=== PATIENT | female | born 1970 | race Caucasian/White ===

== ENCOUNTER 2024-03-13 20:35 | Emergency (ER) | payer MEDICAID, SELFPAY ==
[2024-03-13 20:38] VITALS: BP 138/92; PULSE 104; RESP 20; TEMP 36.6; O2SAT 94; BMI 24.9
--- NOTE | 2024-03-13 20:55 | CRLHL7_ITS ---
For Patients: As a result of the 21st Century Cures Act, medical imaging exams and procedure reports are released immediately into your electronic medical record. You may view this report before your referring provider. If you have questions, please contact your health care provider. INDICATION: Right lower quadrant abdominal pain, constipation, rectal pain. TECHNIQUE: CT of the abdomen and pelvis acquired with 71 cc Isovue 370 IV contrast. Coronal and sagittal reconstructions. COMPARISON: None. FINDINGS: Diffuse hepatic steatosis. The gallbladder is distended with stones in the gallbladder neck and mild pericholecystic edema. No biliary dilation. The spleen, pancreas, and adrenal glands are negative. Hepatic and portal veins are patent. Symmetric enhancement of the kidneys. Small cyst arising from the right upper pole posteriorly. No hydronephrosis or ureteral dilation. No obstructing urinary calculi identified. No bladder wall thickening. Uterus is unremarkable. No small bowel dilation. Moderate amount of stool throughout the colon. Colonic diverticulosis without evidence of diverticulitis. There is wall thickening of the ascending colon with surrounding pericolonic fat stranding. Findings may represent a nonspecific colitis. There is also perirectal fat stranding/edema without significant rectal wall thickening. Negative appendix. Small amount of free fluid in the pelvis and trace perihepatic ascites. No intraperitoneal free air. Fat containing left inguinal hernia. Aortoiliac vascular calcifications. No lymphadenopathy. Degenerative changes of the lower thoracic spine. Chronic appearing T12 compression fracture. Old right posterior rib fracture. Minimal bibasilar atelectasis. IMPRESSION: 1. Distended gallbladder with stones in the gallbladder neck and mild pericholecystic edema. Recommend further evaluation with right upper quadrant ultrasound to exclude acute cholecystitis. 2. Inflammatory changes of the ascending colon suggesting a nonspecific colitis. 3. Perirectal fat stranding and edema without significant rectal wall thickening. Findings could represent mild proctitis. 4. Diffuse hepatic steatosis and small volume ascites. Please note that all CT scans at this facility use dose modulation, iterative reconstruction, and/or weight-based dosing when appropriate to reduce radiation dose to as low as reasonably achievable. Dictated by Digna Buitrago MD @ 03/13/2024 10:09:30 PM (Electronically Signed)
[2024-03-13 21:17] LABS: Basophils Percent Auto 0.6 % (0.0-3.0); Eosinophils Percent Auto 0.1 % (0.0-7.0); Hematocrit 33.9 % (33.0-51.0); Hemoglobin* 11.4 gm/dL (12.0-16.0); Immature Granulocytes Pct Auto 0.3 %; Lymphocytes Percent Auto 29.1 % (20-44); Mean Corpuscular HGB Conc 34 gm/dL (32-36); Mean Corpuscular Hemoglobin 32 pg (26-34); Mean Corpuscular Volume 96 fL (80-100); Neutrophils Percent Auto 62.9 % (42.0-72.0); Platelet Count* 232 K/uL (140-440); RDW Coefficient of Variation % 15.6 % (11.5-15.5); Red Blood Count 3.53 m/uL (4.00-5.20); White Blood Count* 11.49 K/uL (4.50-11.00)
[2024-03-13 21:29] LABS: Chloride* 105 mmol/L (96-114)
[2024-03-13 21:30] LABS: Albumin* 4.4 g/dL (3.3-5.0); Sodium* 144 mmol/L (135-149)
[2024-03-13 21:31] LABS: Potassium* 3.2 mmol/L (3.6-5.1)
--- NOTE | 2024-03-13 21:32 | ED.ABDPAIN ---
HPI - Abdominal Pain General Time Seen by Provider: 21:10 Date Seen: 03/13/24 Chief Complaint: Constipation Stated Complaint: stomach cramping - blockage Time Seen by Provider: 03/13/24 20:55 Source: patient and family (patinets son & significant other) History of Present Illness HPI narrative: Patient is a 53-year-old female who presents emergency department from home with her son and his girlfriend for evaluation of abdominal pain. Patient complains of abdominal pain and constipation. Patient reports longstanding history of constipation for the past 1 year. Patient reports that she has not pooped in over a week. Patient states her last bowel movement was last Tuesday approximately 8 days ago. Patient states at that time it was loose stool. Patient has been taking stool softeners and laxatives to help with her constipation but no relief. Patient states she just wants to poop. Patient reports feeling distended, bloated, and states that her abdomen as hardened. Patient states she is passing gas but no stool. Patient does report longstanding history of constipation, hemorrhoids, does note some blood in her stool. Patient also reports decreased oral intake and states she does not eat or drink much water. Patient does report 1 episode of nausea vomiting last . Patient denies any fever, chills, chest pain, shortness of breath, dysuria, hematuria. Patient reports she is concerned that she may have a tumor in her colon. Patient states her mother of colon cancer, patient has not had colonoscopy. Per family members patient has history of alcohol use disorder, has been drinking daily, typically drinks 1.75 L of liquor at least twice a week. Family reports history of shakes and alcohol withdrawals but denies any alcohol withdrawal seizures, DTs. Patient reports nicotine use. No other complaints.. Related Data Home Medications ?Medication ?Instructions ?Recorded ?Confirmed ibuprofen 800 mg tablet 800 mg PO Q6-8H PRN 03/13/24 03/13/24 Allergies Allergy/AdvReac Type Severity Reaction Status Date / Time sodium phosphate Allergy Unknown Verified 03/13/24 20:43 [From [employer]] Review of Systems Status of ROS Reports: 10 or more systems reviewed and unremarkable except as noted in History and below PFS PFS Social History Smoking Status: Heavy tobacco smoker What tobacco products do you use: cigarettes Do you use any of these nicotine containing products: None Non-prescribed substance use: denies use Exam Narrative: Exam Narrative: General: Afebrile, moderate distress. Appears stated age. HENT: MMM, no oropharyngeal lesions Eyes: PERRL, normal sclerae Neck: non-tender, supple Cardio: regular rate. Regular rhythm. Extremities well perfused Resp: Normal work of breathing, clear breath sounds Chest/Back: no visual signs of trauma, no CVA tenderness Abdomen: Soft, mildly distended, diffuse tenderness to palpation with no rebound, no guarding, no peritoneal signs Neuro: alert and fully oriented. CN II-XII grossly intact. Grossly normal strength and sensation in all extremities. MSK: no deformities. Integumentary/Skin: no rash visualized, normal color Psych: normal affect, normal behavior Const: Vital Signs, click to edit/add: Vital Signs - 24 hr 03/13/24 20:38 03/13/24 22:00 Temperature 97.8 F Pulse Rate [Pulse Oximeter] 104 H 100 Respiratory Rate 20 20 Blood Pressure [Ri ght Upper Arm] 138/92 H 136/97 H Pulse Oximetry 94 94 Oxygen Delivery Me thod Room Air Room Air Course Vital Signs Vital signs: Initial Vital Signs Temperature 97.8 F 03/13/24 20:38 Temperature Source Temporal Artery Scan 03/13/24 20:38 Pulse Rate 104 H 03/13/24 20:38 Respiratory Rate 20 03/13/24 20:38 Blood Pressure 138/92 H 03/13/24 20:38 Blood Pressure Mean 107 H 03/13/24 20:38 Blood Pressure Position Standing 03/13/24 20:38 Pulse Oximetry 94 03/13/24 20:38 Oxygen Delivery Method Room Air 03/13/24 20:38 Vital Signs Temperature 97.8 F 03/13/24 20:38 Pulse Rate 104 H 03/13/24 20:38 Respiratory Rate 20 03/13/24 20:38 Blood Pressure 138/92 H 03/13/24 20:38 Pulse Oximetry 94 03/13/24 20:38 Oxygen Delivery Method Room Air 03/13/24 20:38 Temperature 97.8 F 03/13/24 20:38 Pulse Rate 100 03/13/24 22:00 Respiratory Rate 20 03/13/24 22:00 Blood Pressure 136/97 H 03/13/24 22:00 Pulse Oximetry 94 03/13/24 22:00 Oxygen Delivery Method Room Air 03/13/24 22:00 Medications Administered Medications: Discontinued Medications Generic Name Dose Route Start Last Admin Trade Name Te PRN Reason Stop Dose Admin Sodium Chloride 1,000 mls @ 1,000 mls/hr 03/13/24 22:30 03/13/24 23:59 0.9 % Sodium Chloride 1000 Ml IV 03/13/24 23:29 Infused .Q1H KIRILL Infusion Nicotine 1 patch 03/13/24 22:45 03/13/24 22:54 Nicotine 21 Mg Patch TRANSDERMA 1 patch Q24H KIRILL Administration MDM - Abdominal Pain MDM Narrative Medical decision making narrative: 53-year-old female here with abdominal pain, constipation, last bowel movement 8 days ago. Differential diagnosis includes but is not limited to constipation versus ileus versus obstruction versus diverticulitis versus colitis versus mass versus appendicitis versus cholecystitis versus pancreatitis among others. Upon arrival IV was established, patient was treated with 1 L IV fluid bolus, comprehensive labs, urinalysis, and CT imaging performed. I reviewed complaints all of which are remarkable for mild leukocytosis. As a con 11.49, hemoglobin 11.4, potassium mildly low at 3.2, anion gap elevated at 16, glucose 118, creatinine 0.4, AST elevated at 142, suspect elevation secondary to daily alcohol use, ALT 17, alkaline phosphatase 111, lipase 122. Urinalysis with no evidence of acute infection. I personally read interpreted CT scan and pelvis which demonstrates distended gallbladder with stones in the gallbladder neck and mild pericholecystic edema. Patient does have diffuse abdominal pain, will obtain right upper quadrant ultrasound for further evaluation to rule out acute cholecystitis. Patient with diffuse hepatic steatosis, no evidence of bowel obstruction, there is moderate amount of stool throughout the colon. Diverticulosis with no evidence of acute diverticulitis, wall thickening of the ascending colon with pericolonic fat stranding suggesting nonspecific colitis. Along with perirectal fat stranding edema without significant rectal wall thickening. Right upper quadrant ultrasound was performed which demonstrates echogenic structure along the wall of the gallbladder measuring 4 mm which could represent a small gallbladder polyp. No evidence of acute cholecystitis. I discussed results with patient and family. At this time no emergent indication for admission, or antibiotics at this time. Patient is nontoxic appearing. I did discuss with length at patient regarding bowel regimen including daily stool softeners, laxatives, and strongly encouraged her close outpatient follow-up with her primary care provider as well as Gastroenterology and recommend colonoscopy outpatient. Patient and family are agreeable to discharge home with close outpatient follow-up. Strict return precautions discussed if high fever, severe pain, persistent vomiting, persistent heavy bloody stools, any worsening symptoms. Patient understands and agrees the plan. Medical Records Attestation: I reviewed the patient's medical records. Lab Data Attestation: I reviewed the patient's lab results. Labs: Lab Results 03/13/24 03/13/24 Range/Units 21:13 22:30 WBC 11.49 H (4.50-11.00) K/uL RBC 3.53 L (4.00-5.20) m/uL Hgb 11.4 L (12.0-16.0) gm/dL Hct 33.9 (33.0-51.0) % MCV 96 (80-100) fL MCH 32 (26-34) pg MCHC 34 (32-36) gm/dL RDW Coeff of Rex 15.6 H (11.5-15.5) % Plt Count 232 (140-440) K/uL Neut % (Auto) 62.9 (42.0-72.0) % Lymph % (Auto) 29.1 (20-44) % [place] % (Auto) 7.0 (0.0-11.0) % Eos % (Auto) 0.1 (0.0-7.0) % Baso % (Auto) 0.6 (0.0-3.0) % Neut # (Auto) 7.20 H (1.7-7.0) K/uL Lymph # (Auto) 3.30 H (0.90-2.90) K/uL [place] # (Auto) 0.80 (0.00-0.90) K/UL Eos # (Auto) 0.00 (0.00-0.50) K/uL Baso # (Auto) 0.10 (0.00-0.30) K/uL Abs Immat Gran (auto) 0.00 (0.00-0.30) K/uL Imm/Tot Granulo (auto) 0.3 % Sodium 144 (135-149) mmol/L Potassium 3.2 L (3.6-5.1) mmol/L Chloride 105 (96-114) mmol/L Carbon Dioxide 23 (20-32) mmol/L Anion Gap 16 H (7-15) mEq/L BUN 9 (7-30) mg/dL Creatinine 0.4 L (0.5-1.5) mg/dL Estimated Creat Clear 137.22 Estimated GFR 117 ml/min Glucose 118 H (60-115) mg/dL Calcium 8.5 (8.4-10.6) mg/dL Total Bilirubin 0.6 (0.1-1.5) mg/dL AST 142 H (12-35) U/L ALT 17 (4-35) U/L Alkaline Phosphatase 111 (40-150) U/L Total Protein 7.3 (6.0-8.3) g/dL Albumin 4.4 (3.3-5.0) g/dL Lipase 122 (23-300) U/L Urine Color Yellow (Yellow) Urine Appearance Clear (Clear) Urine pH 7.0 (5.0-8.5) Ur Specific [place] 1.010 (1.000-1.030) Urine Protein Negative (Negative) Urine Glucose (UA) Negative (Negative) Urine Ketones Negative (Negative) Urine Blood Negative (Negative) Urine Nitrite Negative (Negative) Urine Bilirubin Negative (Negative) Urine Urobilinogen 1.0 (0.2-1.0) Ur Leukocyte Esterase Negative (Negative) Urine RBC 0-2 (0-2) Urine WBC 0-2 (0-5) Ur Squamous Epith Cells Few (None-Few) Urine Bacteria None (None) Imaging Data US - abdomen: Attestation: I have reviewed the pertinent imaging results. Radiologist's impression: 1. There is an echogenic structure along the wall of the gallbladder measuring 4 mm which may represent a small gallbladder polyp. CT scan - abdomen: Attestation: I have reviewed the pertinent imaging results. Radiologist's impression: 1. Distended gallbladder with stones in the gallbladder neck and mild pericholecystic edema. Recommend further evaluation with right upper quadrant ultrasound to exclude acute cholecystitis. 2. Inflammatory changes of the ascending colon suggesting a nonspecific colitis. 3. Perirectal fat stranding and edema without significant rectal wall thickening. Findings could represent mild proctitis. 4. Diffuse hepatic steatosis and small volume ascites. Discharge Plan Discharge Clinical Impression: Abdominal pain Patient Disposition: Home, Self-Care Additional Instructions: Please follow-up with your primary care provider for further evaluation follow-up. We recommend calling to schedule an appointment. We recommend following up regarding her ongoing abdominal pain, constipation, and CT scan/ultrasound results. we also recommend following up with gastroenterology team in for further evaluation with colonoscopy. Please make sure you are drinking plenty of water, eat a high-fiber diet, and take stool softeners twice daily to help with her bowel movements. You may want to start taking MiraLax twice daily until you start having bowel movements and then you can drop down to once daily. Please return to the emergency department for high fever, severe abdominal pain, persistent vomiting, any worsening symptoms. It is a pleasure taking care of you today. We hope you feel better soon. Prescriptions: No Action ibuprofen 800 mg tablet 800 mg PO Q6-8H PRN Follow Up/Referrals: Provider,Not a Local [Primary Care Provider] - Stand Alone Forms: [employer] Info Instructions
[2024-03-13 21:33] LABS: Alkaline Phosphatase* 111 U/L (40-150); Anion Gap 16 mEq/L (7-15); Aspartate Amino Transferase* 142 U/L (12-35); Bilirubin Total* 0.6 mg/dL (0.1-1.5); Blood Urea Nitrogen* 9 mg/dL (7-30); Carbon Dioxide* 23 mmol/L (20-32); Creatinine* 0.4 mg/dL (0.5-1.5); Est. Creatinine Clearance* 137.22; Estimated Glomerular Filt Rate 117 ml/min; Glucose* 118 mg/dL (60-115); Lipase* 122 U/L (23-300); Total Protein* 7.3 g/dL (6.0-8.3)
[2024-03-13 21:34] LABS: Alanine Aminotransferase* 17 U/L (4-35); Calcium* 8.5 mg/dL (8.4-10.6)
[2024-03-13 21:35] LABS: Slide Review Reflex No
--- OUTSIDE RECORDS SUMMARY | 2024-03-13 21:53 | XMS_ITS | Referral Summary ---
Author Organization [facility] Address [address] [place] [address] Care Team Providers Care Application Support Technician Name Role Phone Elsewhere, Pcp Primary Care Provider Unavailabl e Source Comments Patient records contain information from all sites at [facility]. For routine questions regarding patient records, call [phone] during business hours, M-F 8:00 AM - 5:00 PM Central Time. Record requests for emergency care only can be directed to [phone] at any time.[facility] Allergies No known active allergies Medications Medication Sig Dispensed Refills Start Date End Date Status acetaminophen (TYLENOL) 500 mg capsule Take by mouth every 6 (six) hours as needed for pain. 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 Hypertension Essential Primary 05/18/2015 Overview: Hypertension (HTN) NOS Immunizations Name Administration Dates Next Due Influenza (IM) Preservative Free 08/21/2010 Influenza TIV (IM) 09/15/2011 Influenza, Seasonal, Injectable 09/15/2011 Influenza, Unspecified 06/29/2016,08/21/2010 PPSV23 08/21/2010 Rho (D) Immune Globulin (IM only) 05/20/2006,01/2002 SARS-COV-2 (COVID-19) - PFIZ ER (Discontinued)(12 years or older) 02/18/2021,01/28/2021 Td Preservative Free (TENIVAC, DECAVAC) 09/12/19 10 Td, (Adult) Unspecified 09/12/2009 Tdap 07/17/2021 influenza vaccine quad (FLUZ ONE/FLUARIX) (6 months and older)(PF) 04/25/2020 Social History Tobacco Use Types Packs/Day Years Used Date Smoking Tobacco: Every Day Cigarettes Smokeless Tobacco: Never Tobacco Cessation:Ready to Q uit: Not Asked; Counseling Given: Not Answered Alcohol Use Standard Drinks/Week Comments Yes 0 (1 standard drink = 0.6 oz pur e alcohol) 3-4 times weekly PHQ-2 Answer Date Recorded PHQ-2 Score 0 02/13/2019 Nutrition Answer Date Recorded Nutrition: EVOO Fat Source Unknown 11/03 Nutrition: Servings of Fruits/Vegetables per Day Not on file 11/03/2020 Dental Answer Date Recorded Dental: Regular Dentist Unknown 11/03/19 21 Sex and Gender Information Value Date Recorded Sex Assigned at Not on file Gender Identity Not on file Sexual Orientation Not on file Last Filed Vital Signs Vital Sign Reading Time Taken Comments Blood Pressure 135/89 10/21/2023 11:32 AM MAILING MACHINE OPERATOR Pulse 98 10/21/2023 11:30 AM MAILING MACHINE OPERATOR Temperature 37.1 ??C (98.8 ??F) 10/21/2023 11:[address] Respiratory Rate 20 07/17/2021 3:50 PM CDT Oxygen Saturation 97% 10/21/2023 11:30 AM MAILING MACHINE OPERATOR Inhaled Oxygen Concentration - - Weight 69.5 kg (153 lb 3.5 oz) 10/21/2023 11:30 AM MAILING MACHINE OPERATOR Height 162.6 cm (5' 4.02) 10/07/2021 1:55 PM CS T Body Mass Index 26.29 10/07/2021 1:55 PM MAILING MACHINE OPERATOR Plan of Treatment Not on file Procedures Procedure Name Priority Date/Time Associated Diagnosis Comments BI BREAST SCREENING BILATERAL WITH TOMOSYNTHESIS RAD - Routine (most inpatients and all outpatients) 10/15/2020 2:25 PM MAILING MACHINE OPERATOR Screening Mammogram Breast Cancer PATHOLOGY BRIM POUNCER CYTOLOGY Routine 06/29/2016 12:00 AM CDT COMPREHENSIVE METABOLIC PANEL, S/P Routine 11/03/2015 9:30 AM MAILING MACHINE OPERATOR HIV-1/-2 AG AND AB SCREEN Routine 11/03/2015 9:30 AM MAILING MACHINE OPERATOR LIPID PANEL, S Routine 11/03/2015 9:30 AM MAILING MACHINE OPERATOR from Last 3 Months or Most Recently Relevant to Health Maintenance Results * BI Breast Screening Bilateral with Tomosynthesis (10/15/2020 2:25 PM MAILING MACHINE OPERATOR) Anatomical Region Laterality Modality Breast, Breast Imaging RST L OS, Breast Imaging ARZ LOS, Breast Imaging FLA LOS Bilateral Mammography 10/15/2020 2:34 PM MAILING MACHINE OPERATOR Impressions 10/15/2020 2:36 PM MAILING MACHINE OPERATOR Negative. RECOMMENDATION: ??Annual Screening Mammogram ASSESSMENT: ??BI-RADS: 1: Negative. Narrative 10/15/2020 2:36 PM MAILING MACHINE OPERATOR EXAM: ??BI BREAST SCREENING BILATERAL WITH TOMOSYNTHESIS Current study was evaluated with a Computer Aided Detection (CAD) system. INDICATION: ??Screening mammogram. COMPARISON: ??No prior exams were available for comparison. DENSITY: ??b. There are scattered areas of fibroglandular density. FINDINGS: ??No mammographic findings of malignancy. Procedure Note Christiano Ragsdale M.D. - 10/15/2020 EXAM: BI BREAST SCREENING BILATERAL WITH TOMOSYNTHESIS Current study was evaluated with a Computer Aided Detection (CAD) system. INDICATION: Screening mammogram. COMPARISON: No prior exams were available for comparison. DENSITY: b. There are scattered areas of fibroglandular density. FINDINGS: No mammographic findings of malignancy. IMPRESSION: Negative. RECOMMENDATION: Annual Screening Mammogram ASSESSMENT: BI-RADS: 1: Negative. Margaret Chisholm APRNNAngyPAngy VELIZG BI PROC EDURES * Pathology BRIM POUNCER Cytology (06/29/2016 12:00 AM CDT) 06/29/2016 Narrative [facility] - 07/09/2016 12:10 PM CDT [facility] in [address] [place], [place] ??[phone] Patient Name: APRIL JEAN Collected: 06/29/2016 Address: City/State/Zip: [address] [place] [address] ??[phone] Received: Reported: 06/30/2016 07/09/2016 Soc. Sec. #: ?/Age/Sex 1970 (Age: 45) ??F Physician(s): GEREMIAS FOSTER Copy To: ? [facility] ??[id number] [address] [place] [address], ??[place] ??[phone] CYTOPATHOLOGY BRIM POUNCER REPORT FINAL CYTOLOGIC DIAGNOSIS Pap Smear - ThinPrep with HPV: NEGATIVE FOR INTRAEPITHELIAL LESION OR MALIGNANCY REACTIVE/REPARATIVE CHANGES. SPARSE TO NO ENDOCERVICAL COMPONENT PRESENT. SATISFACTORY SPECIMEN FOR EVALUATION. ??This specimen required a physician interpretation under CLIA 1987 ?? Electronically Signed Out By [facility]/07/09/2016 SANDRA MITCHELL M.D. VERENICE CAZARES([facility]) The Pap test is a screening procedure and, as such, is subject to both false positive and false negative results as evidenced by published data. ??It is not a diagnostic test and results should be interpreted in the context of the patient's history and other clinical findings. ??Obtaining periodic Pap tests may help to minimize the consequences of any false negatives that may occur. Procedures/Addenda: HUMAN PAPILLOMA VIRUS ADDENDUM ? Date Ordered: ? 06/30/2016 ? Status: ??Signed Out Date Complete: ? 07/09/2016 ? By: ??BENJAMIN CAZARES(ASCP) Date Reported: ? 07/09/2016 INTERPRETATION: Test: Aptima High Risk HPV Result: NEGATIVE FOR HIGH RISK HPV Specimen Description: ThinPrep? ? ? Pap Test PreservCyt Solution HPV by Metal Reclamation Kettle Tender-Mediated Amplification (TMA) for E6/E7 viral messenger RNA (mRNA) is an in-vitro diagnostic test for the detection of 14 high-risk Human Papillomavirus (HPV) types (16, 18, 31, 33, 35, 39, 45, 51, 52, 56, 58, 59, 66, and 68) in cervical specimen. Intended for co-testing or reflex testing of ASC-US Pap smears. Interpretation for patients with ASC-US cytology: Low likelihood of underlying high-grade CIN2-3 or cancer; results are not intended to prevent women from proceeding to colposcopy. Interpretation for patients with NILM cytology who are over 30 years old: Very low likelihood of underlying high-grade SYEDA or cancer; results do not preclude future HPV infection or cytologic abnormalities with underlying CIN2-3 or cancer. SPECIMEN(S) RECEIVED: Pap Smear - ThinPrep with HPV CLINICAL HISTORY: Date of Last PAP: 2012 Date of Last Menstrual Period: N/A Other Clinical Conditions: HPV TYPING REQUESTED Bridget Perales APRN C.N.P. LAB PAP OPHTHALMIC SURGEON ATH ORDERABLES [facility] LAB * (ABNORMAL) Lipid Panel (11/03/2015 9:30 AM MAILING MACHINE OPERATOR) Cholesterol, Total 235(H) <=199 MGDL POWERCHART Comment: 2014 National Lipid Association recommendations for Total Cholesterol in adults ages 18 and up: Desirable <200 mg/dL Borderline high 200-239 mg/dL High 240 mg/dL 2014 National Lipid Association recommendations for Total Cholesterol in children ages 2 to 17. Acceptable <170 mg/dL Borderline High 170-199 mg/dL High 200 mg/dL HX HDL 69 >=50 MGDL POWERCHART Comment: 2014 National Lipid Association recommendations for HDL-C in adults ages 18 and up: Low <40 mg/dL (Men) Low <50 mg/dL (Women) 2014 National Lipid Association recommendations for HDL-C in children ages 2 to 17. Low <40 mg/dL Borderline Low 40-45 mg/dL Acceptable >45 mg/dL Triglycerides 140 <=149 MGDL POWERCHART Comment: 2014 National Lipid Association recommendations for Triglycerides in adults ages 18 and up: Normal <150 mg/dL Borderline High 150-199 mg/dL High 200-499 mg/dL Very High 500 mg/dL 2014 National Lipid Association recommendations for Triglycerides in children ages 2 to 9. Acceptable <75 mg/dL Borderline High 75-99 mg/dL High 100 mg/dL 2014 National Lipid Association recommendations for Triglycerides in children ages 10 to 17. Acceptable <90 mg/dL Borderline High 90-129 mg/dL High 130 mg/dL Trigs >400mg/dL: Triglycerides >400 mg/dL. Calculated LDL cholesterol is not valid. Non-HDL cholesterol may be used for risk assessment when triglycerides are >400mg/dL. Calculated LDL 138(H) <=129 MGDL POWERCHART Comment: 2014 National Lipid Association recommendations for LDL-C in adults ages 18 and up: Desirable <100 mg/dL Above desirable 100-129 mg/dL Borderline high 130-159 mg/dL High 160-189 mg/dL Very High 190 mg/dL 2014 National Lipid Association recommendations for LDL-C in children ages 2 to 17. Acceptable <110 mg/dL Borderline High 110-129mg/dL High 130 mg/dL LDL-C >190mg/dL: The markedly elevated LDL level is suggestive of a genetic condition such as familial hypercholesterolemia(FH) or familial defective apolipoprotein B-100 (FDB). Molecular genetic testing for FH and FDB is available through [facility]: FH/ADH Genetic Reflex Panel (test ADHP). Acquired (non-genetic) causes of markedly increased LDL cholesterol include cholestatic liver disease due to the presence of LpX. If a genetic form of hypercholesterolemia is suspected, family studies including biochemical testing for lipids (total cholesterol,triglycerides, LDL cholesterol and HDL cholesterol) are recommended. ??Please contact the laboratory at or the on-line test catalog at [employer] for information about how to order these tests or to speak with a genetic counselor. Further interpretation would require clinical information. Blood 11/03/2015 9:30 AM MAILING MACHINE OPERATOR Margaret Chisholm APRNNSachin LAB BLOOD A DD-ON POWERCHART * HIV-1/-2 Ag and Ab Screen (11/03/2015 9:30 AM MAILING MACHINE OPERATOR) HIV-1/-2 Antibody Negative Negative POWERCHART Comment: Negative result does not rule out HIV infection. If acute HIV infection is suspected in a high-risk individual, submit plasma specimen for HIV-1 RNA quantification test (HIVDQ) and/or HIV-2 DNA/RNA test (FHV2Q). Test Performed by: [place] [address] [employer] [place] Observer: Srini Sellers II, M.D., Ph.D. Blood 11/03/2015 9:30 AM MAILING MACHINE OPERATOR Margaret Chisholm APRNNSachin LAB MICROBI OLOGY - BLOOD ORDERABLES POWERCHART * (ABNORMAL) CMP (Comprehensive Metabolic Panel) (11/03/2015 9:30 AM MAILING MACHINE OPERATOR) Alanine Amniotransferase, LD 29 7 - 45 UL POWERCHART Albumin, S 4.7 3.5 - 5.2 GDL POWERCHART Alkaline Phosphatase, S 87 35 - 105 UL POWERCHART Aspartate Aminotransferase (AST), S 44(H) 8 - 43 UL POWERCHART Sodium, S 141 135 - 145 MMOLL POWERCHART Potassium, S 4.5 3.5 - 5.1 MMOLL POWERCHART Chloride, S 101 98 - 107 MMOLL POWERCHART CO2 Total 26 22 - 29 MMOLL POWERCHART Glucose, Fasting, S 89 70 - 99 MGDL POWERCHART BUN (Blood Urea Nitrogen), S 12 6 - 24 MGDL POWERCHART Creatinine 0.7 0.6 - 1.1 MGDL POWERCHART Calcium, Total, S 10.0 8.6 - 10.3 MGDL POWERCHART Anion Gap 14 7 - 15 MMOLL POWERCHART HXeGFR (MDRD) >60.0 >=60.0 MLMINSA POWERCHART eGFR Black/ >60.0 >=60.0 MLMINSA POWERCHART Bilirubin, Total, S 0.5 <=1.2 MGDL POWERCHAR T Total Protein, S 7.0 6.3 - 7.9 GDL POWERCHART Blood 11/03/2015 9:30 AM MAILING MACHINE OPERATOR Margaret Chisholm APRNNGiovani. LAB BLOOD A DD-ON POWERCHART from Last 3 Months or Most Recently Relevant to Health Maintenance Care Teams Application Support Technician Relationship Specialty Start Date End Date Elsewhere, Pcp PCP - General Family Medicine 11/19/20
--- OUTSIDE RECORDS SUMMARY | 2024-03-13 21:53 | XMS_ITS ---
Author Organization [facility] Address [address] [place] [address] Care Team Providers Care Cloth Printing Utility Worker Name Role Phone Unavailable Unavailable Unavailable Surgery Details Not on file Complications Check Surgery Details section. Procedure Estimated Blood Loss Check Surgery Details section. Procedure Findings Check Surgery Details section. Procedure Specimens Taken Check Surgery Details section.
--- OUTSIDE RECORDS SUMMARY | 2024-03-13 21:53 | XMS_ITS | Clinical Summary ---
Author Organization [facility] Address [address] [place] [address] Care Team Providers Care Delivery Table Feeder Name Role Phone Elsewhere, Pcp Primary Care Provider Unavailabl e Source Comments Patient records contain information from all sites at [facility]. For routine questions regarding patient records, call [phone] during business hours, M-F 8:00 AM - 5:00 PM Central Time. Record requests for emergency care only can be directed to [phone] at any time.[facility] Allergies No known active allergies Medications Medication Sig Dispensed Refills Start Date End Date Status acetaminophen (TYLENOL) 500 mg capsule Take by mouth every 6 (six) hours as needed for pain. 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 Hypertension Essential Primary 05/18/2015 [...] Comments Blood Pressure 135/89 10/21/2023 11:32 AM BLACKSMITH HAMMER OPERATOR Pulse 98 10/21/2023 11:30 AM BLACKSMITH HAMMER OPERATOR Temperature 37.1 ??C (98.8 ??F) 10/21/2023 11:[address] Respiratory Rate 20 07/17/2021 3:50 PM CDT Oxygen Saturation 97% 10/21/2023 11:30 AM BLACKSMITH HAMMER OPERATOR Inhaled Oxygen Concentration - - Weight 69.5 kg (153 lb 3.5 oz) 10/21/2023 11:30 AM BLACKSMITH HAMMER OPERATOR Height 162.6 cm (5' 4.02) 10/07/2021 1:55 PM CS T Body Mass Index 26.29 10/07/2021 1:55 PM BLACKSMITH HAMMER OPERATOR Plan of Treatment Health Maintenance Due Date Last Done Comments CT Colonography 1970 Cologuard 1970 Colonoscopy 1970 Colorectal Cancer Screening 1970 FIT 1970 Hepatitis C Screening 1970 Tobacco Cessation counseling 1970 Hepatitis B Vaccines (1 of 3 - 19+ 3-dose series) 1987 Pneumococcal vaccine (0-64 y ears) (2 of 2 - PCV) 08/21/2011 08/21/2010 Zoster Vaccines (1 of 2) 2018 Fasting Glucose for Diabetes Screening 11/03/2018 11/03/2015, 05/18/2015 Lipid (Cholesterol) Screening 11/03/2020 11/03/2015 Cervical Cancer Screening 06/29/2021 06/29/2016 Mammogram 10/15/2021 10/15/2020 COVID-19 Vaccine (3 - 2022-2 4 season) 2023 02/18/2021, 01/28/2021 Influenza Vaccine (#1) 2023 0, 06/29/2016, 09/15/2011, Additional history exists Depression Screening (Annual PHQ-2) 09/12/2023 Office Visit for Blood Press ure Check / Re-check 10/21/2024 10/21/2023 DTaP,Tdap,and Td Vaccines (2 - Td or Tdap) 07/17/2031 07/17/2021, 09/12/2009, 09/12/2009 HIV Screening Completed 11/03/2015 Procedures Procedure Name Priority Date/Time Associated Diagnosis Comments BI BREAST SCREENING BILATERAL WITH TOMOSYNTHESIS RAD - Routine (most inpatients and all outpatients) 10/15/2020 2:25 PM BLACKSMITH HAMMER OPERATOR Screening Mammogram Breast Cancer PATHOLOGY JITNEY DRIVER CYTOLOGY Routine 06/29/2016 12:00 AM CDT COMPREHENSIVE METABOLIC PANEL, S/P Routine 11/03/2015 9:30 AM BLACKSMITH HAMMER OPERATOR HIV-1/-2 AG AND AB SCREEN Routine 11/03/2015 9:30 AM BLACKSMITH HAMMER OPERATOR LIPID PANEL, S Routine 11/03/2015 9:30 AM BLACKSMITH HAMMER OPERATOR from Last 3 Months or Most Recently Relevant to Health Maintenance Results * BI Breast Screening Bilateral with Tomosynthesis (10/15/2020 2:25 PM BLACKSMITH HAMMER OPERATOR) Anatomical Region Laterality Modality Breast, Breast Imaging RST L OS, Breast Imaging ARZ LOS, Breast Imaging FLA LOS Bilateral Mammography 10/15/2020 2:34 PM BLACKSMITH HAMMER OPERATOR Impressions 10/15/2020 2:36 PM BLACKSMITH HAMMER OPERATOR Negative. RECOMMENDATION: ??Annual Screening Mammogram ASSESSMENT: ??BI-RADS: 1: Negative. Narrative 10/15/2020 2:36 PM BLACKSMITH HAMMER OPERATOR EXAM: ??BI BREAST SCREENING BILATERAL WITH [...] Annual Screening Mammogram ASSESSMENT: BI-RADS: 1: Negative. Kyler Chisholm APRNG BI PROC EDURES * Pathology JITNEY DRIVER Cytology (06/29/2016 12:00 AM CDT) 06/29/2016 Narrative [facility] LAB - 07/09/2016 12:10 PM CDT [facility] in [address] ??[phone] Patient Name: APRIL JEAN Collected: 06/29/2016 Address: City/State/Zip: [address] [place] [address] ??[phone] Received: Reported: 06/30/2016 07/09/2016 Soc. Sec. #: ?/Age/Sex 1970 (Age: 45) ??F Physician(s): GEREMIAS FOSTER Copy To: ? [facility] [place] ??[id number] [address] [place] [address], ??[place] ??[phone] CYTOPATHOLOGY JITNEY DRIVER REPORT FINAL CYTOLOGIC DIAGNOSIS Pap Smear - ThinPrep with HPV: NEGATIVE FOR INTRAEPITHELIAL LESION OR MALIGNANCY REACTIVE/REPARATIVE CHANGES. SPARSE TO NO ENDOCERVICAL COMPONENT PRESENT. SATISFACTORY SPECIMEN FOR EVALUATION. ??This specimen required a physician interpretation under CLIA 1987 ?? Electronically Signed Out By [facility]/07/09/2016 SANDRA MITCHELL M.D. VERENICE CAZARES(ASCP) The Pap test is a screening procedure [...] Date Complete: ? 07/09/2016 ? By: ??BENJAMIN Salmon CT(ASCP) Date Reported: ? 07/09/2016 INTERPRETATION: Test: Aptima High Risk HPV Result: NEGATIVE FOR HIGH RISK HPV Specimen Description: ThinPrep? ? ? Pap Test PreservCyt Solution HPV by Animal Researcher-Mediated Amplification (TMA) for E6/E7 viral messenger RNA [...] HPV CLINICAL HISTORY: Date of Last PAP: 2013 Date of Last Menstrual Period: N/A Other Clinical Conditions: HPV TYPING REQUESTED Bridget Perales APRN, C.N.P. LAB PAP CONVERSION DEVELOPER ATH ORDERABLES [facility] * (ABNORMAL) Lipid Panel (11/03/2015 9:30 AM BLACKSMITH HAMMER OPERATOR) Cholesterol, Total 235(H) <=199 MGDL POWERCHART [...] for FH and FDB is available through [facility] [employer]: FH/ADH Genetic Reflex Panel (test ADHP). Acquired (non-genetic) causes of markedly increased LDL cholesterol include cholestatic liver disease due to the presence of LpX. If a genetic form of hypercholesterolemia is suspected, family studies including biochemical testing for lipids (total cholesterol,triglycerides, LDL cholesterol and HDL cholesterol) are recommended. ??Please contact the laboratory at or the on-line test catalog at [employer] for information about how to order these tests or to speak with a genetic counselor. Further interpretation would require clinical information. Blood 11/03/2015 9:30 AM BLACKSMITH HAMMER OPERATOR Margaret Chisholm APRNN.P. LAB BLOOD A DD-ON Performing Organization Address City/[facility] de Phone Number POWERCHART * HIV-1/-2 Ag and Ab Screen (11/03/2015 9:30 AM BLACKSMITH HAMMER OPERATOR) HIV-1/-2 Antibody Negative Negative POWERCHART Comment: Negative result does not rule out HIV infection. If acute HIV infection is suspected in a high-risk individual, submit plasma specimen for HIV-1 RNA quantification test (HIVDQ) and/or HIV-2 DNA/RNA test (FHV2Q). Test Performed by: [place] [address] Process Improvement Specialist: Srini Sellers II, M.D., Ph.D. Blood 11/03/2015 9:30 AM BLACKSMITH HAMMER OPERATOR Toi Chisholm APRN.N.P. LAB MICROBI OLOGY - BLOOD ORDERABLES Performing Organization Address City/[facility]/ZIP Co de Phone Number POWERCHART * (ABNORMAL) CMP (Comprehensive Metabolic Panel) (11/03/2015 9:30 AM BLACKSMITH HAMMER OPERATOR) Alanine Amniotransferase, LD 29 7 - [...] 7.9 GDL POWERCHART Blood 11/03/2015 9:30 AM BLACKSMITH HAMMER OPERATOR Margaret Chisholm APRNNSachin LAB BLOOD A DD-ON POWERCHART from Last 3 Months or Most Recently Relevant to Health Maintenance Care Teams Delivery Table Feeder Relationship Specialty Start Date End Date Elsewhere, Pcp PCP - General Family Medicine 11/19/20
[2024-03-13 22:00] VITALS: BP 136/97; PULSE 100; RESP 20; O2SAT 94
--- NOTE | 2024-03-13 22:39 | CRLHL7_ITS ---
For Patients: As a result of the Century Cures Act, medical imaging exams and procedure reports are released immediately into your electronic medical record. You may view this report before your referring provider. If you have questions, please contact your health care provider. INDICATION: Abdominal pain TECHNIQUE: Ultrasound abdomen limited. Sonographic images of the gallbladder and biliary tree were obtained using smith-scale and color Doppler images. COMPARISON: None FINDINGS: The sensitivity and specificity of the exam are moderately limited by the patient`s discomfort and inability to maintain a breath hold. Liver: The liver parenchyma is normal in echotexture. Gallbladder: The neck of the gallbladder is not well demonstrated. No gallstones or sludge seen in the lumen. There is an echogenic structure along the wall of the gallbladder measuring 4 mm which may represent a small gallbladder polyp. No pericholecystic fluid is present. No sonographic Fernandes???s sign is present. Common bile duct: Not visualized. No intrahepatic biliary ductal dilatation seen. Vascular: Proximal abdominal aorta and IVC are not demonstrated. IMPRESSION: 1. There is an echogenic structure along the wall of the gallbladder measuring 4 mm which may represent a small gallbladder polyp. Dictated by Austin Weinberg MD @ 03/13/2024 11:55:41 PM Dictated by: Austin Weinberg MD @ 03/13/2024 23:58:42 (Electronically Signed)
[2024-03-13] MEDS: NICOTINE 21 MG PATCH 1 PATCH TRANSDERMA (22:54)
[2024-03-13] MEDS: 0.9 % SODIUM CHLORIDE 1000 ml 1,000 ML IV (22:54)
[2024-03-13 22:56] LABS: Appearance Urine Clear (Clear); Bilirubin Urine Negative (Negative); Blood Urine Negative (Negative); Color Urine Yellow (Yellow); Glucose Urine Negative (Negative); Ketones Urine Negative (Negative); Leukocyte Esterase Urine Negative (Negative); Nitrite Urine Negative (Negative); Protein Urine Negative (Negative)
[2024-03-13 23:10] LABS: RBC Urine 0-2 (0-2); Squamous Epithelial Cell Urine Few (None-Few); WBC Urine 0-2 (0-5)
--- NOTE | 2024-03-14 00:12 | PC.NURSE ---
IV D/C intact. I need to smoke-sorry to be such a pain in the ass! Family at BS with all cares explained.,
== END 2024-03-14 00:17 | disposition home or self-care (01) ==
PROVIDERS: Emergency Provider Emergency Medicine
DX: R10.11 Right upper quadrant pain (principal)
CPT/HCPCS: 36415; 74177; 76705; 80053; 81001; 83690; 85025; 99284; 99285; J7030; Q9967; S4990